=== PATIENT | female | born 1990 | race Two or more races ===

== ENCOUNTER 2023-02-18 10:25 | Inpatient (IN) | payer OTHER ==
[2023-02-18 11:47] VITALS: BMI 29.0
[2023-02-18] MEDS ORDERED: BENZONATATE 200 MG CAPSULE PO PRN (12:24)
[2023-02-18] MEDS ORDERED: guaiFENesin 600 MG TABLET.ER (FP) PO PRN (12:24)
[2023-02-18] MEDS ORDERED: chlordiazePOXIDE HCL 25 MG CAPSULE PO PRN (12:24)
[2023-02-18] MEDS ORDERED: MAGNESIUM HYDROX 2400MG/30ML ORAL SUSPENSION 30 ML CUP PO PRN (12:24)
[2023-02-18] MEDS ORDERED: DICYCLOMINE HCL 10 MG CAPSULE PO PRN (12:24)
[2023-02-18] MEDS ORDERED: IBUPROFEN 600 MG TABLET (FP) PO PRN (12:24)
[2023-02-18] MEDS ORDERED: POLYETHYLENE GLYCOL (HEALTHYLAX) 3350 17 GM PACKET PO PRN (12:24)
[2023-02-18] MEDS ORDERED: LOPERAMIDE HCL 2 MG CAPSULE PO PRN (12:24)
[2023-02-18] MEDS ORDERED: BENZOCAINE/MENTHOL (CHLORASEPTIC ) LOZENGE MM PRN (12:24)
[2023-02-18] MEDS ORDERED: ACETAMINOPHEN 325 MG TABLET (FP) PO PRN (12:24)
[2023-02-18] MEDS ORDERED: BISMUTH SUBSALICYLATE 524 MG/30 ML PO PRN (12:24)
[2023-02-18] MEDS ORDERED: IBUPROFEN 400 MG TABLET (FP) PO PRN (12:24)
[2023-02-18] MEDS ORDERED: ONDANSETRON *ODT* 4 MG TABLET SL PRN (12:24)
[2023-02-18] MEDS ORDERED: NICOTINE POLACRILEX 2 MG GUM BUC PRN (12:24)
[2023-02-18] MEDS ORDERED: P-EPHED 60MG/TRIPROLIDI 2.5MG TABLET PO PRN (12:24)
[2023-02-18] MEDS ORDERED: chlordiazePOXIDE HCL 25 MG CAPSULE PO ONE (13:30)
[2023-02-18] MEDS: GABAPENTIN 400 MG CAPSULE PO SCH (14:00)
[2023-02-18] MEDS: MAG HYDROX/AL HYDROX/SIMETH 30 ML UNIT-DOSE CUP PO PRN (15:14)
[2023-02-18] MEDS: chlordiazePOXIDE HCL 25 MG CAPSULE PO SCH ×2 (17:30→22:09)
[2023-02-18] MEDS: hydrOXYzine PAMOATE 25 MG CAPSULE (FP) PO PRN (19:43)
[2023-02-18] MEDS: GABAPENTIN 300 MG CAPSULE PO SCH (22:09)
[2023-02-18] MEDS: THIAMINE HCL 100 MG TABLET (FP) PO SCH (22:10)
[2023-02-18] MEDS: MELATONIN 5 MG TABLETS PO SCH (22:12)
[2023-02-18] MEDS: risperiDONE 0.5 MG TABLET PO SCH (23:40)
[2023-02-19] MEDS: chlordiazePOXIDE HCL 25 MG CAPSULE PO SCH ×4 (06:02→22:09)
[2023-02-19] MEDS: hydrOXYzine PAMOATE 25 MG CAPSULE (FP) PO PRN (08:41)
[2023-02-19] MEDS: PRENATAL VITAMINS W/ FOLIC ACID TABLET (FP) PO SCH (10:06)
[2023-02-19] MEDS: VENLAFAXINE HCL 75 MG E.R. CAPSULES PO SCH (10:06)
[2023-02-19] MEDS: GABAPENTIN 300 MG CAPSULE PO SCH ×2 (10:07→22:10)
[2023-02-19] MEDS: METHOCARBAMOL 500 MG TABLET PO PRN ×2 (10:07→17:46)
[2023-02-19] MEDS: GABAPENTIN 400 MG CAPSULE PO SCH (13:55)
[2023-02-19] MEDS: THIAMINE HCL 100 MG TABLET (FP) PO SCH (22:09)
[2023-02-19] MEDS: risperiDONE 0.5 MG TABLET PO SCH (22:09)
[2023-02-19] MEDS: MELATONIN 5 MG TABLETS PO SCH (22:10)
[2023-02-20] MEDS: chlordiazePOXIDE HCL 25 MG CAPSULE PO SCH ×4 (06:11→22:00)
[2023-02-20 09:51] LABS: HEMATOCRIT 35.2 % (32.4-45.2); HEMOGLOBIN 11.9 GM/dL (10.7-15.3); MCH 28.6 pg (25.7-33.7); MCHC 33.7 g/dl (32.0-36.0); MEAN CELL VOLUME 84.9 fl (80-96); MEAN PLT VOLUME 9.8 fl (7.5-11.1); PLATELET COUNT 130 10^3/uL (134-434); RBC 4.14 M/mm3 (3.60-5.2); RDW 19.1 % (11.6-15.6); WHITE BLOOD COUNT 6.2 K/mm3 (4.0-10.0)
[2023-02-20 09:55] LABS: POTASSIUM 3.9 mmol/L (3.5-5.1)
[2023-02-20 10:06] LABS: ALBUMIN 3.2 g/dl (3.4-5.0); CALCIUM 8.1 mg/dL (8.5-10.1)
[2023-02-20 10:08] LABS: BLOOD UREA NITROGEN 8.7 mg/dL (7-18)
[2023-02-20 10:10] LABS: CREATININE 0.7 mg/dL (0.55-1.3)
[2023-02-20 10:11] LABS: BILIRUBIN,TOTAL 0.9 mg/dL (0.2-1); TOT PROT 6.2 g/dl (6.4-8.2)
[2023-02-20] MEDS: PRENATAL VITAMINS W/ FOLIC ACID TABLET (FP) PO SCH (10:25)
[2023-02-20] MEDS: VENLAFAXINE HCL 75 MG E.R. CAPSULES PO SCH (10:25)
[2023-02-20] MEDS: METHOCARBAMOL 500 MG TABLET PO PRN ×2 (10:26→17:27)
[2023-02-20] MEDS: GABAPENTIN 300 MG CAPSULE PO SCH ×2 (10:26→21:59)
[2023-02-20] MEDS: hydrOXYzine PAMOATE 25 MG CAPSULE (FP) PO PRN (10:26)
[2023-02-20] MEDS: GABAPENTIN 400 MG CAPSULE PO SCH (14:06)
[2023-02-20] MEDS: THIAMINE HCL 100 MG TABLET (FP) PO SCH (21:59)
[2023-02-20] MEDS: MELATONIN 5 MG TABLETS PO SCH (22:00)
[2023-02-20] MEDS ORDERED: risperiDONE 1 MG TABLET PO SCH (22:00)
[2023-02-20] MEDS: risperiDONE 0.5 MG TABLET PO SCH (23:46)
[2023-02-21] MEDS: chlordiazePOXIDE HCL 10 MG CAPSULE PO SCH ×4 (06:04→22:33)
[2023-02-21] MEDS: chlordiazePOXIDE HCL 10 MG CAPSULE PO PRN ×2 (07:25→14:44)
[2023-02-21] MEDS: hydrOXYzine PAMOATE 25 MG CAPSULE (FP) PO PRN (10:06)
[2023-02-21] MEDS: PRENATAL VITAMINS W/ FOLIC ACID TABLET (FP) PO SCH (10:06)
[2023-02-21] MEDS: METHOCARBAMOL 500 MG TABLET PO PRN (10:06)
[2023-02-21] MEDS: GABAPENTIN 300 MG CAPSULE PO SCH ×2 (10:06→22:33)
[2023-02-21] MEDS: VENLAFAXINE HCL 75 MG E.R. CAPSULES PO SCH (10:06)
[2023-02-21] MEDS: GABAPENTIN 400 MG CAPSULE PO SCH (13:36)
[2023-02-21] MEDS: MELATONIN 5 MG TABLETS PO SCH (22:33)
[2023-02-21] MEDS: risperiDONE 0.5 MG TABLET PO SCH (22:33)
[2023-02-21] MEDS: THIAMINE HCL 100 MG TABLET (FP) PO SCH (22:33)
[2023-02-22] MEDS: chlordiazePOXIDE HCL 10 MG CAPSULE PO SCH ×2 (05:34→16:52)
[2023-02-22] MEDS: GABAPENTIN 300 MG CAPSULE PO SCH ×2 (10:12→22:08)
[2023-02-22] MEDS: PRENATAL VITAMINS W/ FOLIC ACID TABLET (FP) PO SCH (10:12)
[2023-02-22] MEDS: VENLAFAXINE HCL 75 MG E.R. CAPSULES PO SCH (10:12)
[2023-02-22] MEDS: hydrOXYzine PAMOATE 25 MG CAPSULE (FP) PO PRN (10:13)
[2023-02-22] MEDS: METHOCARBAMOL 500 MG TABLET PO PRN (10:13)
[2023-02-22] MEDS: GABAPENTIN 400 MG CAPSULE PO SCH (14:39)
[2023-02-22] MEDS: MELATONIN 5 MG TABLETS PO SCH (22:07)
[2023-02-22] MEDS: THIAMINE HCL 100 MG TABLET (FP) PO SCH (22:07)
[2023-02-22] MEDS: risperiDONE 0.5 MG TABLET PO SCH (22:08)
[2023-02-23] MEDS ORDERED: chlordiazePOXIDE HCL 10 MG CAPSULE PO ONE (05:00)
[2023-02-23 09:11] VITALS: TEMP 97.5
[2023-02-23] MEDS: PRENATAL VITAMINS W/ FOLIC ACID TABLET (FP) PO SCH (10:09)
[2023-02-23] MEDS: VENLAFAXINE HCL 75 MG E.R. CAPSULES PO SCH (10:09)
[2023-02-23] MEDS: GABAPENTIN 300 MG CAPSULE PO SCH (10:09)
[2023-02-23] MEDS: METHOCARBAMOL 500 MG TABLET PO PRN (10:11)
[2023-02-23 12:41] VITALS: BP 109/60; PULSE 81; RESP 18
[2023-02-23] MEDS: GABAPENTIN 400 MG CAPSULE PO SCH (13:17)
[2023-02-23] MEDS: MAG HYDROX/AL HYDROX/SIMETH 30 ML UNIT-DOSE CUP PO PRN (13:54)
== END 2023-02-23 14:14 | disposition other institution (70) | DRG 775 ==
LOC: YASAS 10:25 → Y6N 12:58
PROVIDERS: ADMIT Allergy & Immunology; ATTEND Allergy & Immunology
PROC: HZ2ZZZZ Detoxification Services for Substance Abuse Treatment (ICD-10-PCS; principal; 2023-02-18)
DX: F10.230 Alcohol dependence with withdrawal, uncomplicated (principal); F17.290 Nicotine dependence, other tobacco product, uncomplicated; F25.0 Schizoaffective disorder, bipolar type; F10.280 Alcohol dependence with alcohol-induced anxiety disorder; F10.282 Alcohol dependence with alcohol-induced sleep disorder; F32.9 Major depressive disorder, single episode, unspecified; Z86.2 Personal history of diseases of the blood and blood-forming organs and certain disorders involving the immune mechanism; Z88.0 Allergy status to penicillin
CPT/HCPCS: 36415; 80053; 81025; 85027; 86780; 87635; 87811

== ENCOUNTER 2023-02-23 14:19 | Inpatient (IN) | payer OTHER ==
[2023-02-23] MEDS ORDERED: MAGNESIUM HYDROX 2400MG/30ML ORAL SUSPENSION 30 ML CUP PO PRN (14:22)
[2023-02-23] MEDS ORDERED: hydrOXYzine PAMOATE 25 MG CAPSULE (FP) PO PRN (14:22)
[2023-02-23] MEDS ORDERED: LOPERAMIDE HCL 2 MG CAPSULE PO PRN (14:22)
[2023-02-23] MEDS ORDERED: BENZONATATE 200 MG CAPSULE PO PRN (14:22)
[2023-02-23] MEDS ORDERED: NICOTINE POLACRILEX 2 MG GUM BUC PRN (14:22)
[2023-02-23] MEDS ORDERED: POLYETHYLENE GLYCOL (HEALTHYLAX) 3350 17 GM PACKET PO PRN (14:22)
[2023-02-23] MEDS ORDERED: NICOTINE 7 MG/24 HOURS TOPICAL PATCH TD PRN (14:22)
[2023-02-23] MEDS ORDERED: AMMONIUM LACTATE 12% LOTION 225 GM BOTTLE TP PRN (14:22)
[2023-02-23] MEDS ORDERED: COLLOIDAL OATMEAL 1 BAR EACH TP PRN (14:22)
[2023-02-23] MEDS ORDERED: guaiFENesin 600 MG TABLET.ER (FP) PO PRN (14:22)
[2023-02-23] MEDS: GABAPENTIN 300 MG CAPSULE PO SCH (21:06)
[2023-02-23] MEDS: MELATONIN 5 MG TABLETS PO SCH (21:06)
[2023-02-23] MEDS: risperiDONE 0.5 MG TABLET PO SCH (21:06)
[2023-02-23] MEDS: THIAMINE HCL 100 MG TABLET (FP) PO SCH (21:06)
[2023-02-23] MEDS: hydrOXYzine PAMOATE 50 MG CAPSULE (FP) PO PRN (21:08)
[2023-02-24] MEDS: VENLAFAXINE HCL 75 MG E.R. CAPSULES PO SCH (10:08)
[2023-02-24] MEDS: GABAPENTIN 300 MG CAPSULE PO SCH ×2 (10:09→21:21)
[2023-02-24] MEDS: PRENATAL VITAMINS W/ FOLIC ACID TABLET (FP) PO SCH (10:09)
[2023-02-24] MEDS: MAG HYDROX/AL HYDROX/SIMETH 30 ML UNIT-DOSE CUP PO PRN (13:33)
[2023-02-24] MEDS: GABAPENTIN 400 MG CAPSULE PO SCH (14:49)
[2023-02-24] MEDS: hydrOXYzine PAMOATE 50 MG CAPSULE (FP) PO PRN (15:37)
[2023-02-24] MEDS: THIAMINE HCL 100 MG TABLET (FP) PO SCH (21:21)
[2023-02-24] MEDS: risperiDONE 0.5 MG TABLET PO SCH (21:21)
[2023-02-24] MEDS: MELATONIN 5 MG TABLETS PO SCH (21:21)
[2023-02-25] MEDS: METHOCARBAMOL 500 MG TABLET PO PRN (06:23)
[2023-02-25] MEDS: hydrOXYzine PAMOATE 50 MG CAPSULE (FP) PO PRN (06:24)
[2023-02-25] MEDS: IBUPROFEN 400 MG TABLET (FP) PO PRN (06:24)
[2023-02-25] MEDS: PRENATAL VITAMINS W/ FOLIC ACID TABLET (FP) PO SCH (09:46)
[2023-02-25] MEDS: GABAPENTIN 300 MG CAPSULE PO SCH ×2 (09:46→21:04)
[2023-02-25] MEDS: VENLAFAXINE HCL 75 MG E.R. CAPSULES PO SCH (09:46)
[2023-02-25] MEDS: GABAPENTIN 400 MG CAPSULE PO SCH (14:32)
[2023-02-25] MEDS: MELATONIN 5 MG TABLETS PO SCH (21:04)
[2023-02-25] MEDS: risperiDONE 0.5 MG TABLET PO SCH (21:04)
[2023-02-25] MEDS: THIAMINE HCL 100 MG TABLET (FP) PO SCH (21:04)
[2023-02-26] MEDS: hydrOXYzine PAMOATE 50 MG CAPSULE (FP) PO PRN (07:34)
[2023-02-26] MEDS: VENLAFAXINE HCL 75 MG E.R. CAPSULES PO SCH (09:58)
[2023-02-26] MEDS: GABAPENTIN 300 MG CAPSULE PO SCH ×2 (09:59→21:31)
[2023-02-26] MEDS: PRENATAL VITAMINS W/ FOLIC ACID TABLET (FP) PO SCH (09:59)
[2023-02-26] MEDS: GABAPENTIN 400 MG CAPSULE PO SCH (13:46)
[2023-02-26] MEDS: THIAMINE HCL 100 MG TABLET (FP) PO SCH (21:30)
[2023-02-26] MEDS: MELATONIN 5 MG TABLETS PO SCH (21:30)
[2023-02-26] MEDS: risperiDONE 0.5 MG TABLET PO SCH (21:30)
[2023-02-27] MEDS: VENLAFAXINE HCL 75 MG E.R. CAPSULES PO SCH (09:51)
[2023-02-27] MEDS: GABAPENTIN 300 MG CAPSULE PO SCH ×2 (09:51→21:01)
[2023-02-27] MEDS: PRENATAL VITAMINS W/ FOLIC ACID TABLET (FP) PO SCH (09:51)
[2023-02-27] MEDS: GABAPENTIN 400 MG CAPSULE PO SCH (14:27)
[2023-02-27] MEDS: MELATONIN 5 MG TABLETS PO SCH (21:01)
[2023-02-27] MEDS: risperiDONE 0.5 MG TABLET PO SCH (21:01)
[2023-02-27] MEDS: THIAMINE HCL 100 MG TABLET (FP) PO SCH (21:02)
[2023-02-28] MEDS: hydrOXYzine PAMOATE 50 MG CAPSULE (FP) PO PRN ×2 (05:50→21:18)
[2023-02-28] MEDS: VENLAFAXINE HCL 75 MG E.R. CAPSULES PO SCH (09:35)
[2023-02-28] MEDS: GABAPENTIN 300 MG CAPSULE PO SCH ×2 (09:35→21:17)
[2023-02-28] MEDS: PRENATAL VITAMINS W/ FOLIC ACID TABLET (FP) PO SCH (09:35)
[2023-02-28] MEDS: GABAPENTIN 400 MG CAPSULE PO SCH (13:20)
[2023-02-28] MEDS: METHOCARBAMOL 500 MG TABLET PO PRN (21:17)
[2023-02-28] MEDS: risperiDONE 0.5 MG TABLET PO SCH (21:18)
[2023-02-28] MEDS: MELATONIN 5 MG TABLETS PO SCH (21:18)
[2023-02-28] MEDS: THIAMINE HCL 100 MG TABLET (FP) PO SCH (21:19)
[2023-03-01] MEDS: hydrOXYzine PAMOATE 50 MG CAPSULE (FP) PO PRN ×2 (03:39→21:12)
[2023-03-01] MEDS: VENLAFAXINE HCL 75 MG E.R. CAPSULES PO SCH (09:45)
[2023-03-01] MEDS: PRENATAL VITAMINS W/ FOLIC ACID TABLET (FP) PO SCH (09:51)
[2023-03-01] MEDS: GABAPENTIN 300 MG CAPSULE PO SCH ×2 (09:51→21:13)
[2023-03-01] MEDS: GABAPENTIN 400 MG CAPSULE PO SCH (14:18)
[2023-03-01] MEDS: risperiDONE 0.5 MG TABLET PO SCH (21:11)
[2023-03-01] MEDS: MELATONIN 5 MG TABLETS PO SCH (21:13)
[2023-03-01] MEDS: THIAMINE HCL 100 MG TABLET (FP) PO SCH (21:41)
[2023-03-02] MEDS: hydrOXYzine PAMOATE 50 MG CAPSULE (FP) PO PRN ×2 (06:11→21:10)
[2023-03-02] MEDS: PRENATAL VITAMINS W/ FOLIC ACID TABLET (FP) PO SCH (10:08)
[2023-03-02] MEDS: GABAPENTIN 300 MG CAPSULE PO SCH ×2 (10:09→21:10)
[2023-03-02] MEDS: VENLAFAXINE HCL 75 MG E.R. CAPSULES PO SCH (10:09)
[2023-03-02] MEDS: GABAPENTIN 400 MG CAPSULE PO SCH (13:34)
[2023-03-02] MEDS: THIAMINE HCL 100 MG TABLET (FP) PO SCH (21:08)
[2023-03-02] MEDS: risperiDONE 0.5 MG TABLET PO SCH (21:08)
[2023-03-02] MEDS: SUVOREXANT 10 MG TABLET PO PRN (21:08)
[2023-03-03] MEDS: GABAPENTIN 300 MG CAPSULE PO SCH ×2 (09:42→21:12)
[2023-03-03] MEDS: PRENATAL VITAMINS W/ FOLIC ACID TABLET (FP) PO SCH (09:43)
[2023-03-03] MEDS: VENLAFAXINE HCL 75 MG E.R. CAPSULES PO SCH (09:43)
[2023-03-03] MEDS: GABAPENTIN 400 MG CAPSULE PO SCH (14:21)
[2023-03-03] MEDS: risperiDONE 0.5 MG TABLET PO SCH (21:11)
[2023-03-03] MEDS: SUVOREXANT 10 MG TABLET PO PRN (21:13)
[2023-03-03] MEDS: THIAMINE HCL 100 MG TABLET (FP) PO SCH (21:13)
[2023-03-04] MEDS: PRENATAL VITAMINS W/ FOLIC ACID TABLET (FP) PO SCH (10:14)
[2023-03-04] MEDS: GABAPENTIN 300 MG CAPSULE PO SCH ×2 (10:14→21:09)
[2023-03-04] MEDS: VENLAFAXINE HCL 75 MG E.R. CAPSULES PO SCH (10:14)
[2023-03-04] MEDS: GABAPENTIN 400 MG CAPSULE PO SCH (13:30)
[2023-03-04] MEDS: risperiDONE 0.5 MG TABLET PO SCH (21:09)
[2023-03-04] MEDS: THIAMINE HCL 100 MG TABLET (FP) PO SCH (21:09)
[2023-03-04] MEDS: SUVOREXANT 10 MG TABLET PO PRN (21:09)
[2023-03-05] MEDS: VENLAFAXINE HCL 75 MG E.R. CAPSULES PO SCH (09:39)
[2023-03-05] MEDS: PRENATAL VITAMINS W/ FOLIC ACID TABLET (FP) PO SCH (09:40)
[2023-03-05] MEDS: GABAPENTIN 300 MG CAPSULE PO SCH ×2 (09:40→21:31)
[2023-03-05] MEDS: GABAPENTIN 400 MG CAPSULE PO SCH (13:26)
[2023-03-05] MEDS: risperiDONE 0.5 MG TABLET PO SCH (21:31)
[2023-03-05] MEDS: SUVOREXANT 10 MG TABLET PO PRN (21:31)
[2023-03-05] MEDS: THIAMINE HCL 100 MG TABLET (FP) PO SCH (21:31)
[2023-03-06] MEDS: VENLAFAXINE HCL 75 MG E.R. CAPSULES PO SCH (09:58)
[2023-03-06] MEDS: IBUPROFEN 600 MG TABLET (FP) PO PRN (09:59)
[2023-03-06] MEDS: PRENATAL VITAMINS W/ FOLIC ACID TABLET (FP) PO SCH (09:59)
[2023-03-06] MEDS: GABAPENTIN 300 MG CAPSULE PO SCH ×2 (09:59→21:18)
[2023-03-06] MEDS: GABAPENTIN 400 MG CAPSULE PO SCH (14:00)
[2023-03-06] MEDS: risperiDONE 0.5 MG TABLET PO SCH (21:18)
[2023-03-06] MEDS: THIAMINE HCL 100 MG TABLET (FP) PO SCH (21:18)
[2023-03-06] MEDS: SUVOREXANT 10 MG TABLET PO PRN (21:20)
[2023-03-06] MEDS: MAG HYDROX/AL HYDROX/SIMETH 30 ML UNIT-DOSE CUP PO PRN (22:40)
[2023-03-07] MEDS: GABAPENTIN 300 MG CAPSULE PO SCH ×2 (10:17→21:13)
[2023-03-07] MEDS: VENLAFAXINE HCL 75 MG E.R. CAPSULES PO SCH (10:18)
[2023-03-07] MEDS: PRENATAL VITAMINS W/ FOLIC ACID TABLET (FP) PO SCH (10:18)
[2023-03-07] MEDS: IBUPROFEN 600 MG TABLET (FP) PO PRN (10:19)
[2023-03-07] MEDS: BENZOCAINE/MENTHOL (CHLORASEPTIC ) LOZENGE MM PRN (10:20)
[2023-03-07] MEDS: GABAPENTIN 400 MG CAPSULE PO SCH (14:30)
[2023-03-07] MEDS: SODIUM CHLORIDE NASAL SPRAY 44 ML BOTTLE NS PRN (14:31)
[2023-03-07] MEDS: guaiFENesin 600 MG TABLET.ER (FP) PO SCH (21:11)
[2023-03-07] MEDS: risperiDONE 0.5 MG TABLET PO SCH (21:11)
[2023-03-07] MEDS: THIAMINE HCL 100 MG TABLET (FP) PO SCH (21:11)
[2023-03-07] MEDS: SUVOREXANT 10 MG TABLET PO PRN (21:13)
[2023-03-08] MEDS: PRENATAL VITAMINS W/ FOLIC ACID TABLET (FP) PO SCH (10:06)
[2023-03-08] MEDS: guaiFENesin 600 MG TABLET.ER (FP) PO SCH ×2 (10:07→22:13)
[2023-03-08] MEDS: GABAPENTIN 300 MG CAPSULE PO SCH ×2 (10:07→22:13)
[2023-03-08] MEDS: SODIUM CHLORIDE NASAL SPRAY 44 ML BOTTLE NS PRN (10:07)
[2023-03-08] MEDS: ACETAMINOPHEN 325 MG TABLET (FP) PO PRN (10:08)
[2023-03-08] MEDS: VENLAFAXINE HCL 75 MG E.R. CAPSULES PO SCH (10:08)
[2023-03-08] MEDS: GABAPENTIN 400 MG CAPSULE PO SCH (14:40)
[2023-03-08] MEDS: SUVOREXANT 10 MG TABLET PO PRN (22:13)
[2023-03-08] MEDS: THIAMINE HCL 100 MG TABLET (FP) PO SCH (22:13)
[2023-03-08] MEDS: risperiDONE 0.5 MG TABLET PO SCH (22:13)
[2023-03-09] MEDS: PRENATAL VITAMINS W/ FOLIC ACID TABLET (FP) PO SCH (10:49)
[2023-03-09] MEDS: VENLAFAXINE HCL 75 MG E.R. CAPSULES PO SCH (10:50)
[2023-03-09] MEDS: guaiFENesin 600 MG TABLET.ER (FP) PO SCH ×2 (10:50→21:18)
[2023-03-09] MEDS: GABAPENTIN 300 MG CAPSULE PO SCH ×2 (10:50→21:18)
[2023-03-09] MEDS: GABAPENTIN 400 MG CAPSULE PO SCH (13:18)
[2023-03-09] MEDS: SUVOREXANT 10 MG TABLET PO PRN (21:18)
[2023-03-09] MEDS: THIAMINE HCL 100 MG TABLET (FP) PO SCH (21:18)
[2023-03-09] MEDS: risperiDONE 0.5 MG TABLET PO SCH (21:19)
[2023-03-09] MEDS: IBUPROFEN 400 MG TABLET (FP) PO PRN (21:20)
[2023-03-10] MEDS: BENZOCAINE/MENTHOL (CHLORASEPTIC ) LOZENGE MM PRN (05:30)
[2023-03-10] MEDS: guaiFENesin 600 MG TABLET.ER (FP) PO SCH ×3 (05:31→21:34)
[2023-03-10] MEDS: ALBUTEROL SO4 HFA INHALER IH PRN ×3 (05:39→21:36)
[2023-03-10] MEDS: IBUPROFEN 600 MG TABLET (FP) PO PRN (05:43)
[2023-03-10] MEDS: GABAPENTIN 300 MG CAPSULE PO SCH ×2 (10:31→21:34)
[2023-03-10] MEDS: VENLAFAXINE HCL 75 MG E.R. CAPSULES PO SCH (10:32)
[2023-03-10] MEDS: PRENATAL VITAMINS W/ FOLIC ACID TABLET (FP) PO SCH (10:32)
[2023-03-10] MEDS: ACETAMINOPHEN 325 MG TABLET (FP) PO PRN (10:33)
[2023-03-10] MEDS ORDERED: BENZONATATE 200 MG CAPSULE PO PRN (14:36)
[2023-03-10] MEDS: GABAPENTIN 400 MG CAPSULE PO SCH (14:42)
[2023-03-10] MEDS: THIAMINE HCL 100 MG TABLET (FP) PO SCH (21:34)
[2023-03-10] MEDS: SUVOREXANT 10 MG TABLET PO PRN (21:35)
[2023-03-10] MEDS: risperiDONE 0.5 MG TABLET PO SCH (21:38)
[2023-03-11] MEDS: VENLAFAXINE HCL 75 MG E.R. CAPSULES PO SCH (10:18)
[2023-03-11] MEDS: GABAPENTIN 300 MG CAPSULE PO SCH ×2 (10:18→21:40)
[2023-03-11] MEDS: guaiFENesin 600 MG TABLET.ER (FP) PO SCH ×2 (10:18→21:40)
[2023-03-11] MEDS: PRENATAL VITAMINS W/ FOLIC ACID TABLET (FP) PO SCH (10:19)
[2023-03-11] MEDS: GABAPENTIN 400 MG CAPSULE PO SCH (13:40)
[2023-03-11] MEDS: ALBUTEROL SO4 HFA INHALER IH PRN (21:39)
[2023-03-11] MEDS: THIAMINE HCL 100 MG TABLET (FP) PO SCH (21:40)
[2023-03-11] MEDS: risperiDONE 0.5 MG TABLET PO SCH (21:40)
[2023-03-11] MEDS: SUVOREXANT 10 MG TABLET PO PRN (21:40)
[2023-03-12 07:31] VITALS: BMI 30.7
[2023-03-12] MEDS: VENLAFAXINE HCL 75 MG E.R. CAPSULES PO SCH (10:40)
[2023-03-12] MEDS: PRENATAL VITAMINS W/ FOLIC ACID TABLET (FP) PO SCH (10:40)
[2023-03-12] MEDS: GABAPENTIN 300 MG CAPSULE PO SCH ×2 (10:40→21:03)
[2023-03-12] MEDS: guaiFENesin 600 MG TABLET.ER (FP) PO SCH ×2 (10:40→21:05)
[2023-03-12] MEDS: GABAPENTIN 400 MG CAPSULE PO SCH (14:13)
[2023-03-12] MEDS: THIAMINE HCL 100 MG TABLET (FP) PO SCH (21:03)
[2023-03-12] MEDS: SUVOREXANT 10 MG TABLET PO PRN (21:05)
[2023-03-12] MEDS: risperiDONE 0.5 MG TABLET PO SCH (21:05)
[2023-03-13 07:40] VITALS: RESP 18
[2023-03-13] MEDS: guaiFENesin 600 MG TABLET.ER (FP) PO SCH ×2 (10:06→22:01)
[2023-03-13] MEDS: GABAPENTIN 300 MG CAPSULE PO SCH ×2 (10:06→22:01)
[2023-03-13] MEDS: VENLAFAXINE HCL 75 MG E.R. CAPSULES PO SCH (10:06)
[2023-03-13] MEDS: PRENATAL VITAMINS W/ FOLIC ACID TABLET (FP) PO SCH (10:06)
[2023-03-13] MEDS: GABAPENTIN 400 MG CAPSULE PO SCH (13:01)
[2023-03-13] MEDS: THIAMINE HCL 100 MG TABLET (FP) PO SCH (22:00)
[2023-03-13] MEDS: SUVOREXANT 10 MG TABLET PO PRN (22:01)
[2023-03-13] MEDS: risperiDONE 0.5 MG TABLET PO SCH (22:02)
[2023-03-14] MEDS: IBUPROFEN 400 MG TABLET (FP) PO PRN (10:35)
[2023-03-14] MEDS: PRENATAL VITAMINS W/ FOLIC ACID TABLET (FP) PO SCH (10:35)
[2023-03-14] MEDS: GABAPENTIN 300 MG CAPSULE PO SCH ×2 (10:36→21:48)
[2023-03-14] MEDS: VENLAFAXINE HCL 75 MG E.R. CAPSULES PO SCH (10:36)
[2023-03-14] MEDS: guaiFENesin 600 MG TABLET.ER (FP) PO SCH ×2 (10:36→21:48)
[2023-03-14] MEDS: GABAPENTIN 400 MG CAPSULE PO SCH (14:41)
[2023-03-14] MEDS: THIAMINE HCL 100 MG TABLET (FP) PO SCH (21:48)
[2023-03-14] MEDS: SUVOREXANT 10 MG TABLET PO PRN (21:48)
[2023-03-14] MEDS: risperiDONE 0.5 MG TABLET PO SCH (21:48)
[2023-03-15 08:01] VITALS: PULSE 89; TEMP 97.8
[2023-03-15] MEDS: VENLAFAXINE HCL 75 MG E.R. CAPSULES PO SCH (09:54)
[2023-03-15] MEDS: GABAPENTIN 300 MG CAPSULE PO SCH ×2 (09:54→21:07)
[2023-03-15] MEDS: guaiFENesin 600 MG TABLET.ER (FP) PO SCH ×2 (09:54→21:07)
[2023-03-15] MEDS: ACETAMINOPHEN 325 MG TABLET (FP) PO PRN (09:55)
[2023-03-15] MEDS: PRENATAL VITAMINS W/ FOLIC ACID TABLET (FP) PO SCH (09:57)
[2023-03-15] MEDS: GABAPENTIN 400 MG CAPSULE PO SCH (14:11)
[2023-03-15] MEDS: THIAMINE HCL 100 MG TABLET (FP) PO SCH (21:07)
[2023-03-15] MEDS: risperiDONE 0.5 MG TABLET PO SCH (21:07)
[2023-03-15] MEDS: SUVOREXANT 10 MG TABLET PO PRN (21:07)
[2023-03-16 08:00] VITALS: BP 112/70
[2023-03-16] MEDS: guaiFENesin 600 MG TABLET.ER (FP) PO SCH (09:45)
[2023-03-16] MEDS: ALBUTEROL SO4 HFA INHALER IH PRN (09:45)
[2023-03-16] MEDS: VENLAFAXINE HCL 75 MG E.R. CAPSULES PO SCH (09:45)
[2023-03-16] MEDS: SODIUM CHLORIDE NASAL SPRAY 44 ML BOTTLE NS PRN (09:45)
[2023-03-16] MEDS: GABAPENTIN 300 MG CAPSULE PO SCH (09:45)
[2023-03-16] MEDS: PRENATAL VITAMINS W/ FOLIC ACID TABLET (FP) PO SCH (09:46)
== END 2023-03-16 10:30 | disposition home or self-care (01) | DRG 772 ==
LOC: YASAS 14:19 → Y5N 14:21
PROVIDERS: ADMIT Allergy & Immunology; ATTEND Psychiatry & Neurology Pain Medicine
PROC: HZ42ZZZ Group Counseling for Substance Abuse Treatment, Cognitive-Behavioral (ICD-10-PCS; principal; 2023-02-23)
DX: F10.20 Alcohol dependence, uncomplicated (principal); F17.290 Nicotine dependence, other tobacco product, uncomplicated; F25.0 Schizoaffective disorder, bipolar type; F41.8 Other specified anxiety disorders

== ENCOUNTER 2023-04-09 20:12 | Inpatient (IN) | payer OTHER ==
[2023-04-09 20:22] VITALS: BMI 29.7
[2023-04-09] MEDS ORDERED: ONDANSETRON *ODT* 4 MG TABLET SL PRN (20:40)
[2023-04-09] MEDS ORDERED: ACETAMINOPHEN 325 MG TABLET (FP) PO PRN (20:40)
[2023-04-09] MEDS ORDERED: BENZONATATE 200 MG CAPSULE PO PRN (20:40)
[2023-04-09] MEDS ORDERED: IBUPROFEN 400 MG TABLET (FP) PO PRN (20:40)
[2023-04-09] MEDS ORDERED: DICYCLOMINE HCL 10 MG CAPSULE PO PRN (20:40)
[2023-04-09] MEDS ORDERED: guaiFENesin 600 MG TABLET.ER (FP) PO PRN (20:40)
[2023-04-09] MEDS ORDERED: IBUPROFEN 600 MG TABLET (FP) PO PRN (20:40)
[2023-04-09] MEDS ORDERED: MAG HYDROX/AL HYDROX/SIMETH 30 ML UNIT-DOSE CUP PO PRN (20:40)
[2023-04-09] MEDS ORDERED: NALOXONE HCL (KLOXXADO) 8 MG SPRAY NS PRN (20:40)
[2023-04-09] MEDS ORDERED: BENZOCAINE/MENTHOL (CHLORASEPTIC ) LOZENGE MM PRN (20:40)
[2023-04-09] MEDS ORDERED: LOPERAMIDE HCL 2 MG CAPSULE PO PRN (20:40)
[2023-04-09] MEDS ORDERED: NALOXONE HCL 0.4 MG/ML VIAL IM PRN (20:40)
[2023-04-09] MEDS ORDERED: POLYETHYLENE GLYCOL (HEALTHYLAX) 3350 17 GM PACKET PO PRN (20:40)
[2023-04-09] MEDS ORDERED: MAGNESIUM HYDROX 2400MG/30ML ORAL SUSPENSION 30 ML CUP PO PRN (20:40)
[2023-04-09] MEDS ORDERED: hydrOXYzine PAMOATE 25 MG CAPSULE (FP) PO ONE (21:08)
[2023-04-09] MEDS ORDERED: ONDANSETRON *ODT* 4 MG TABLET ONE (21:08)
[2023-04-09] MEDS ORDERED: chlordiazePOXIDE HCL 25 MG CAPSULE ONE (21:08)
[2023-04-09] MEDS: hydrOXYzine PAMOATE 25 MG CAPSULE (FP) PO PRN (21:18)
[2023-04-09] MEDS: chlordiazePOXIDE HCL 25 MG CAPSULE PO PRN (21:19)
[2023-04-09] MEDS ORDERED: MELATONIN 5 MG TABLETS PO SCH (22:00)
[2023-04-09] MEDS ORDERED: THIAMINE HCL 100 MG TABLET (FP) PO SCH (22:00)
[2023-04-09] MEDS: BISMUTH SUBSALICYLATE 524 MG/30 ML PO PRN (22:30)
[2023-04-09] MEDS: chlordiazePOXIDE HCL 25 MG CAPSULE PO SCH (22:55)
[2023-04-10] MEDS: METHOCARBAMOL 500 MG TABLET PO PRN ×2 (01:03→07:14)
[2023-04-10] MEDS: chlordiazePOXIDE HCL 25 MG CAPSULE PO PRN (01:03)
[2023-04-10] MEDS: BISMUTH SUBSALICYLATE 524 MG/30 ML PO PRN (01:07)
[2023-04-10] MEDS: chlordiazePOXIDE HCL 25 MG CAPSULE PO SCH ×3 (05:48→17:40)
[2023-04-10] MEDS: hydrOXYzine PAMOATE 25 MG CAPSULE (FP) PO PRN (07:14)
[2023-04-10 09:12] VITALS: RESP 18
[2023-04-10 09:37] LABS: HEMATOCRIT 33.3 % (32.4-45.2); HEMOGLOBIN 11.3 GM/dL (10.7-15.3); MCH 29.7 pg (25.7-33.7); MEAN CELL VOLUME 87.4 fl (80-96); MEAN PLT VOLUME 9.3 fl (7.5-11.1); PLATELET COUNT 123 10^3/uL (134-434); RBC 3.81 M/mm3 (3.60-5.2); RDW 18.3 % (11.6-15.6); WHITE BLOOD COUNT 5.9 K/mm3 (4.0-10.0)
[2023-04-10 09:41] LABS: POTASSIUM 3.3 mmol/L (3.5-5.1)
[2023-04-10 09:58] LABS: ALBUMIN 3.4 g/dl (3.4-5.0); BLOOD UREA NITROGEN 8.1 mg/dL (7-18)
[2023-04-10] MEDS ORDERED: PRENATAL VITAMINS W/ FOLIC ACID TABLET (FP) PO SCH (10:00)
[2023-04-10 10:04] LABS: BILIRUBIN,TOTAL 1.5 mg/dL (0.2-1); TOT PROT 6.6 g/dl (6.4-8.2)
[2023-04-10] MEDS ORDERED: POTASSIUM CHLORIDE ORAL LIQUID 20 MEQ/15 ML PO ONE (12:15)
[2023-04-10] MEDS ORDERED: GABAPENTIN 300 MG CAPSULE PO SCH (14:00)
[2023-04-10 17:53] VITALS: BP 100/53; PULSE 96; TEMP 97.7
[2023-04-10] MEDS ORDERED: SUVOREXANT 10 MG TABLET PO PRN (22:00)
[2023-04-11] MEDS ORDERED: chlordiazePOXIDE HCL 25 MG CAPSULE PO SCH (05:00)
[2023-04-12] MEDS ORDERED: chlordiazePOXIDE HCL 10 MG CAPSULE PO PRN
[2023-04-12] MEDS ORDERED: chlordiazePOXIDE HCL 10 MG CAPSULE PO SCH (05:00)
[2023-04-13] MEDS ORDERED: chlordiazePOXIDE HCL 10 MG CAPSULE PO SCH (05:00)
[2023-04-14] MEDS ORDERED: chlordiazePOXIDE HCL 10 MG CAPSULE PO ONE (05:00)
== END 2023-04-10 18:45 | disposition left against medical advice (07) | DRG 770 ==
LOC: YASAS 20:12 → Y3N 21:09
PROVIDERS: ADMIT Allergy & Immunology; ATTEND Surgery
PROC: HZ2ZZZZ Detoxification Services for Substance Abuse Treatment (ICD-10-PCS; principal; 2023-04-09)
DX: F10.230 Alcohol dependence with withdrawal, uncomplicated (principal); F33.2 Major depressive disorder, recurrent severe without psychotic features; F10.282 Alcohol dependence with alcohol-induced sleep disorder; F10.280 Alcohol dependence with alcohol-induced anxiety disorder; F41.9 Anxiety disorder, unspecified; E87.6 Hypokalemia; J45.20 Mild intermittent asthma, uncomplicated; Z87.19 Personal history of other diseases of the digestive system; Z88.0 Allergy status to penicillin; Z86.2 Personal history of diseases of the blood and blood-forming organs and certain disorders involving the immune mechanism; Z91.410 Personal history of adult physical and sexual abuse
CPT/HCPCS: 36415; 80053; 81025; 85027; 86780; 87635; Q0162